=== PATIENT | male | born 1965 | race Caucasian/White ===

== ENCOUNTER → 2017-05-06 | Outpatient (CLI) | payer OTHER ==
--- NOTE | 2017-05-06 16:35 | Diagnostic Imaging Report ---
Indication: Cough Technique: 2 views of the chest Comparison: None Findings: Lungs and pleural spaces are clear. The heart size is normal. The bones are unremarkable. No significant interim change. Impression: No acute process
== END | disposition home or self-care (01) ==
LOC: RAD 15:36
DX: R05 Cough (principal)
CPT/HCPCS: 71046